=== PATIENT | male | born 1955 | race African-American/Black ===

== ENCOUNTER 2020-05-16 06:48 | Emergency (ER) | payer MEDICARE, OTHER ==
[~2020-05-16] VITALS: Ht 177.8 cm; Wt 87.0 kg
[2020-05-16] MEDS ORDERED: ONDANSETRON 4MG ODT PO ONE (07:30)
[2020-05-16] MEDS ORDERED: MORPHINE SULFATE 10 MG/ML CPJ IM ONE (07:30)
[2020-05-16] MEDS ORDERED: KETOROLAC 60MG/2ML VIAL IM ONE (07:30)
[2020-05-16 09:20] LABS: CLARITY URINE CLEAR (CLEAR); COLOR URINE YELLOW (YELLOW); KETONES URINE NEGATIVE (NEGATIVE); LEUKOCYTE ESTERASE URINE NEGATIVE (NEGATIVE); NITRITE URINE NEGATIVE (NEGATIVE); OCCULT BLOOD URINE 1+ (NEGATIVE); PROTEIN URINE NEGATIVE (NEGATIVE); SPECIFIC GRAVITY URINE 1.015 (1.005-1.030); UROBILINOGEN URINE 0.2 E.U./dL (0.2-1.0)
[2020-05-16 11:19] VITALS: BP 140/72
== END 2020-05-16 12:07 | disposition home or self-care (01) ==
LOC: ER 06:48
DX: N39.0 Urinary tract infection, site not specified (principal); R03.0 Elevated blood-pressure reading, without diagnosis of hypertension; E78.00 Pure hypercholesterolemia, unspecified
CPT/HCPCS: 81003; 96372; 99284; J1885; J2270; Q0162